=== PATIENT | female | born 2000 | race Caucasian/White ===

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

== ENCOUNTER 2018-01-09 16:03 | Emergency (ER) | payer BC, OTHER ==
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
[2018-01-09 18:06] VITALS: BP 113/62
--- NOTE | 2018-01-10 10:39 | CR ---
EXAM DATE: 01/09/18 PATIENT'S AGE: 17 Patient: BERNARDINO HAYNES Facility: [place], [place] Site . Site : 2000 Study: XRay Chest [id number]/14/2018 5:38:29 PM Ordering Physician: Doctor Anderson Final Report: INDICATION: chest pain, sob, hx of asthma, smoker TECHNIQUE: PA and lateral chest films are submitted. COMPARISON: None. FINDINGS: Heart size and pulmonary vasculature within normal limits. Lung lombardi are clear. IMPRESSION: No active disease. Dictated by Matt Nelson MD @ 01/09/2018 6:20:13 PM Dictated by: Matt Nelson MD @ 01/09/2018 18:20:20 (Electronic Signature) Report Signed by Proxy. DAVID
== END 2018-01-09 17:58 | disposition home or self-care (01) ==
LOC: MW.ED 16:03
DX: M62.838 Other muscle spasm (principal); Z91.02 Food additives allergy status; Z91.048 Other nonmedicinal substance allergy status; F17.210 Nicotine dependence, cigarettes, uncomplicated
CPT/HCPCS: 71046; 71046-26; 81025; 99283

== ENCOUNTER 2018-01-11 00:05 | Emergency (ER) | payer BC, OTHER ==
[2018-01-11 00:18] VITALS: BP 127/76
[2018-01-11] MEDS ORDERED: Diphtheria/Tetanus Toxoids,Adult (Td) 0.5 ML Syringe IM ONE (00:22)
[2018-01-11] MEDS ORDERED: Ketorolac 60 MG/2 ML SDV IM ONE (00:22)
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
[2018-01-11] MEDS ORDERED: Diphtheria,Pertussis(Acell),Tetanus Vaccine 0.5 ML Syringe IM ONE (00:43)
--- NOTE | 2018-01-11 11:03 | CR ---
EXAM DATE: 01/11/18 PATIENT'S AGE: 17 Patient: BERNARDINO HAYNES Facility: [place], [place] Site . Site : 2000 Study: XRay Extremity Left Finger [id number]/16/2018 12:36:42 AM Ordering Physician: Nawaf Franks Final Report: INDICATION: L 5th digit pain after crushing injury today TECHNIQUE: Three views of the left thumb COMPARISON: None FINDINGS: Bones: No fractures or bone lesions. Joint spaces: Unremarkable. Soft tissues: Unremarkable. IMPRESSION: No acute bony abnormality Dictated by Thad Coleman MD @ 01/11/2018 12:45:01 AM Dictated by: Thad Coleman MD @ 01/11/2018 00:45:18 (Electronic Signature) Report Signed by Proxy. [facility]ja
== END 2018-01-11 01:05 | disposition home or self-care (01) ==
LOC: MW.ED 00:05
DX: S60.012A Contusion of left thumb without damage to nail, initial encounter (principal); F17.210 Nicotine dependence, cigarettes, uncomplicated; Z91.018 Allergy to other foods; Z23 Encounter for immunization; W20.8XXA Other cause of strike by thrown, projected or falling object, initial encounter
CPT/HCPCS: 73140; 90471; 90715; 96372; 99283; J1885

== ENCOUNTER 2018-11-26 16:33 | Emergency (ER) | payer BC, OTHER ==
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
[2018-11-26 17:23] VITALS: BP 109/66
--- NOTE | 2018-11-26 17:43 | CR ---
INDICATION: Chest pain and shortness of breath TECHNIQUE: Chest 2 views COMPARISON: January 09, 2018 FINDINGS: Cardiovascular and mediastinum: Heart size and vasculature are normal in caliber and appearance. Lungs and pleural spaces: Lungs are clear. No sign of infiltrate or mass. No sign of pleural effusion. No pneumothorax. Bones and soft tissues: No significant findings. IMPRESSION: Unremarkable chest. No change from the prior exam. Dictated by Sid Faustin MD @ Nov 26 2018 5:41PM Signed by Dr. Sid Faustin @ Nov 26 2018 5:42PM
== END 2018-11-26 17:20 | disposition home or self-care (01) ==
LOC: MW.ED 16:33
DX: R05 Cough (principal); F17.210 Nicotine dependence, cigarettes, uncomplicated; Z91.018 Allergy to other foods; Z79.899 Other long term (current) drug therapy
CPT/HCPCS: 71046; 71046-26; 99285-25

== ENCOUNTER 2019-05-20 20:09 | Emergency (ER) | payer BC, OTHER ==
[2019-05-20] MEDS ORDERED: Ondansetron 4 MG/2 ML SDV IVPUSH ONE (20:32)
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
[2019-05-20] MEDS ORDERED: Sodium Chloride 0.9% 1,000 ML IV SCH (20:45)
[2019-05-20 21:29] LABS: CHLORIDE,CL 104 mmol/L (98-107); SODIUM,NA 138 mmol/L (136-145)
[2019-05-20 22:03] VITALS: BP 109/61
== END 2019-05-20 22:04 | disposition home or self-care (01) ==
LOC: MW.ED 20:09
DX: O21.0 Mild hyperemesis gravidarum (principal); Z98.890 Other specified postprocedural states; Z87.891 Personal history of nicotine dependence; Z91.018 Allergy to other foods; Z3A.01 Less than 8 weeks gestation of pregnancy
CPT/HCPCS: 80053; 85025; 96361; 96374; 99284; J2405; J7040

== ENCOUNTER 2019-07-27 13:50 | Emergency (ER) | payer BC, OTHER ==
[2019-07-27] MEDS ORDERED: Ondansetron 4 MG/2 ML SDV IVPUSH ONE (14:03)
[2019-07-27] MEDS ORDERED: Sodium Chloride 0.9% 1,000 ML IV ONE (14:03)
[2019-07-27 14:09] VITALS: PULSE 81
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
--- NOTE | 2019-07-27 14:32 | CR ---
INDICATION: Pain, short of breath. COMPARISON: November 26, 2018. FINDINGS: The heart mediastinum and pulmonary vessels are stable and within normal limits. The lungs are clear. Osseous structures normal. IMPRESSION: Stable chest. No acute/active disease demonstrated. Dictated by Prosper Chiu MD @ Jul 27 2019 2:30PM Signed by Dr. Prosper Chiu @ Jul 27 2019 2:31PM
[2019-07-27 14:51] LABS: BLOOD UREA NITROGEN,BUN 5 mg/dL (7.0-18.0); CARBON DIOXIDE,CO2 21.1 mmol/L (21.0-32.0); CHLORIDE,CL 105 mmol/L (98-107); GLUCOSE RANDOM 85 mg/dL (74-106); LIPASE 109 U/L (73-393); POTASSIUM,K 3.5 mmol/L (3.5-5.1); SODIUM,NA 140 mmol/L (136-145)
[2019-07-27 15:30] VITALS: BP 112/55
== END 2019-07-27 15:29 | disposition home or self-care (01) ==
LOC: MW.ED 13:50
DX: O23.42 Unspecified infection of urinary tract in pregnancy, second trimester (principal); O99.342 Other mental disorders complicating pregnancy, second trimester; F41.9 Anxiety disorder, unspecified; Z91.018 Allergy to other foods; Z91.048 Other nonmedicinal substance allergy status; Z3A.16 16 weeks gestation of pregnancy
CPT/HCPCS: 36415; 71045; 80053; 81001; 83690; 85025; 87086; J2405; J7040

== ENCOUNTER 2020-01-07 05:50 | Inpatient (IN) | payer BC, OTHER ==
[2020-01-07] MEDS ORDERED: Sodium Chloride 0.9% 2.5 ML Syringe FLUSH PRN (05:58)
[2020-01-07] MEDS ORDERED: Water For Irrigation,Sterile 1,000 ML Container IRR PRN (05:58)
[2020-01-07] MEDS ORDERED: Ondansetron 4 MG/2 ML SDV IVPUSH PRN (05:58)
[2020-01-07] MEDS ORDERED: Sodium Chloride 0.9% 10 ML Syringe FLUSH PRN (05:58)
[2020-01-07] MEDS ORDERED: Terbutaline 1 MG/ML SDV SUBCUT PRN (05:58)
[2020-01-07] MEDS ORDERED: Misoprostol 200 MCG Tab PO PRN (05:58)
[2020-01-07] MEDS ORDERED: Sodium Chloride 0.9% 10 ML SDV IV PRN (05:58)
[2020-01-07] MEDS ORDERED: Butorphanol 1 MG/ML SDV IVPUSH PRN (05:58)
[2020-01-07] MEDS ORDERED: Methylergonovine 0.2 MG/1 ML Amp IM PRN (05:58)
[2020-01-07] MEDS ORDERED: Lidocaine 1% 50 ML MDV INJECT PRN (05:58)
[2020-01-07] MEDS ORDERED: Nalbuphine 10 MG/1 ML Vial IVPUSH PRN (05:58)
[2020-01-07] MEDS ORDERED: Ampicillin 2 GM in Sodium Chloride 0.9% 100 ML IV ONE (05:58)
[2020-01-07] MEDS ORDERED: Tranexamic Acid 1,000 MG in Sodium Chloride 0.9% 100 ML IV PRN (05:58)
[2020-01-07] MEDS ORDERED: Carboprost Tromethamine 250 MCG/1 ML Amp IM PRN (05:58)
[2020-01-07] MEDS ORDERED: Oxytocin/0.9 % Sodium Chloride 30 UNIT/500 ML BAG IV SCH ×2 (06:00)
[2020-01-07] MEDS: Lactated Ringers 1,000 ML IV SCH ×2 (06:38→08:15)
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
[2020-01-07] MEDS ORDERED: Bupivicaine/fentaNYL/NS 250 ML ONE (07:39)
[2020-01-07] MEDS ORDERED: Bupivacaine 0.5% 10 ML SDV ONE (08:19)
[2020-01-07] MEDS ORDERED: Bisacodyl 10 MG Supp RECTAL PRN (10:42)
[2020-01-07] MEDS ORDERED: Witch Hazel Medicated Pads 40/Jar TOP PRN (10:42)
[2020-01-07] MEDS ORDERED: Ibuprofen 800 MG Tab PO PRN (10:42)
[2020-01-07] MEDS ORDERED: Benzocaine/Menthol 20%-0.5% Spray 78 GM Cannister TOP PRN (10:42)
[2020-01-07] MEDS ORDERED: Ibuprofen 400 MG Tab PO PRN (10:42)
[2020-01-07] MEDS ORDERED: Docusate Sodium 100 MG Cap PO PRN (10:42)
[2020-01-07] MEDS ORDERED: Lanolin 100% Cream 7 GM Tube TOP PRN (10:42)
[2020-01-07] MEDS ORDERED: Acetaminophen 500 MG Tab PO PRN ×2 (10:42)
--- NOTE | 2020-01-07 23:29 | OR ---
SURGEON: Sendy Trores M.D. DATE OF PROCEDURE: 01/07/2020 PREOPERATIVE DIAGNOSES: A 39-week intrauterine , active spontaneous labor, suspected growth restriction, group B strep positive. POSTOPERATIVE DIAGNOSES: A 39-week intrauterine , active spontaneous labor, suspected growth restriction, group B strep positive. PROCEDURE: Group B strep prophylaxis term spontaneous vaginal delivery. PRIMARY SURGEON: Sendy Torres M.D. ANESTHESIA: Epidural. ESTIMATED BLOOD LOSS: Less than 100 mL. FINDINGS: Live born female. scores 8 and 9. Weight of 6 pounds 1 ounce. Placenta spontaneous. Schultze intact with 3 vessels. Perineum intact. COMPLICATIONS: None known. DISPOSITION: Mother and baby are in LDR in good condition. BRIEF HISTORY: This is a 19-year-old female, G3, P1-0-1-1. She presents at 39-0/7 weeks' gestation. She presented to Labor and Delivery with planned induction of labor due to minimal growth over the last 3 weeks. However, upon admission to Labor and Delivery, she began to have several uncomfortable contractions. Then, had spontaneous rupture of membranes with clear fluid noted. She had received ampicillin for group B strep prophylaxis and she progressed into spontaneous labor. She received an epidural for pain control and she progressed to complete. DESCRIPTION OF PROCEDURE: With the patient in dorsal lithotomy position, the patient pushed over a 5- minute time period to a 5+ station, at which time the head was delivered spontaneously and atraumatically over the perineum with support with subsequent delivery of the infant's shoulders and body without any difficulty. The infant was bulb suctioned by nose and mouth and the cord was clamped x2 and cut. The infant was handed to the mother in the presence of the nurse attending delivery. The was a live born female, scores 8 and 9, weighing 6 pounds 1 ounce. Cord blood was collected for cord ABGs. Pitocin was initiated after delivery of the to assist with delivery of the placenta, which was delivered spontaneously. Schultze intact with 3 vessels. Upon inspection of the pelvis and perineum, there were no periurethral, vaginal sidewall, cervical, rectal, or perineal lacerations. EBL was less than 200 mL. Final sponge, needle, and instrument counts were correct. There were no known complications. Mother and baby remained in LDR in good condition. JOSÉ / AMANDO /[id number]
--- NOTE | 2020-01-08 09:27 | PCM.PNPP ---
- General Info Date of Service: 01/08/20 Functional Status: Reports: Pain Controlled, Tolerating Diet, Ambulating, Urinating, Other (baby will need to stay until tomorrow for observations due to GBS status) - Review of Systems General: Reports: No Symptoms HEENT: Reports: No Symptoms Pulmonary: Reports: No Symptoms Cardiovascular: Reports: No Symptoms Gastrointestinal: Reports: No Symptoms Genitourinary: Reports: No Symptoms Musculoskeletal: Reports: No Symptoms Skin: Reports: No Symptoms Neurological: Reports: No Symptoms Psychiatric: Reports: No Symptoms - Patient Data Vital Signs - Most Recent: Last Vital Signs Temp 36.3 C 01/08/20 07:00 Pulse 65 01/08/20 07:00 Resp 18 01/08/20 07:00 BP 102/58 L 01/08/20 07:00 Pulse Ox 98 01/08/20 07:00 Weight - Most Recent: 72.575 kg Lab Results - Last 24 Hours: Laboratory Results - last 24 hr 01/07/20 01/07/20 01/08/20 Range/Units 10:23 10:23 06:04 Hgb 12.3 (12.0-16.0) g/dL Hct 38.0 (36.0-46.0) % Cord ABG pH 7.409 H (7.18-7.38) Cord ABG Base Excess -3 (-10--2) Cord VBG pH 7.450 (7.25-7.45) Cord VBG Base Excess -2 (-10--2) Med Orders - Current: Current Medications Acetaminophen (Tylenol Extra Strength) 500 mg PO Q4H PRN PRN Reason: Pain Acetaminophen (Tylenol Extra Strength) 1,000 mg PO Q4H PRN PRN Reason: Pain Benzocaine/Menthol (Dermoplast Pain Relief 20%-0.5% [place]) 78 gm TOP ASDIRECTED PRN PRN Reason: Perineal Comfort Measure Bisacodyl (Dulcolax) 10 mg RECTAL ONETIME PRN PRN Reason: Constipation Carboprost Tromethamine (Hemabate Ds) 250 mcg IM ASDIRECTED PRN PRN Reason: Post Hemorrhage Docusate Sodium (Colace) 100 mg PO BID PRN PRN Reason: Constipation Emollient Ointment (Lansinoh Hpa) 0 gm TOP ASDIRECTED PRN PRN Reason: Sore Nipples Tranexamic Acid 1,000 mg/ (Sodium Chloride) 110 mls @ 660 mls/hr IV ONETIME PRN PRN Reason: Bleeding Ibuprofen (Motrin) 400 mg PO Q4H PRN PRN Reason: Pain Ibuprofen (Motrin) 800 mg PO Q6H PRN PRN Reason: Pain Methylergonovine Maleate (Methergine) 0.2 mg IM ASDIRECTED PRN PRN Reason: Post Hemorrhage Misoprostol (Cytotec) 200 mcg PO ONETIME PRN PRN Reason: Post Hemorrhage Ondansetron HCl (Zofran) 4 mg IVPUSH Q6H PRN PRN Reason: Nausea/Vomiting Witch Domo (Tucks) 1 pad TOP ASDIRECTED PRN PRN Reason: comfort care Discontinued Medications Bupivacaine HCl (Sensorcaine-Mpf 0.5%) Confirm Administered Dose 10 ml .ROUTE .[employer] ONE Stop: 01/07/20 08:20 Last Admin: 01/07/20 16:32 Dose: Not Given Butorphanol Tartrate (Stadol) 1 mg IVPUSH Q1H PRN PRN Reason: Pain Ampicillin Sodium 2 gm/ Sodium (Chloride) 100 mls @ 200 mls/hr IV ONETIME ONE Stop: 01/07/20 06:27 Last Admin: 01/07/20 06:39 Dose: 200 mls/hr Lactated Ringer's (Ringers, Lactated) 1,000 mls @ 150 mls/hr IV ASDIRECTED [facility] Last Admin: 01/07/20 08:15 Dose: 150 mls/hr Oxytocin/Sodium Chloride (Oxytocin 30 Unit/500 Ml-Ns) 30 unit in 500 mls @ 500 mls/hr IV TITRATE [facility] Last Admin: 01/07/20 10:25 Dose: 500 mls/hr Oxytocin/Sodium Chloride (Oxytocin 30 Unit/500 Ml-Ns) 30 unit in 500 mls @ 2 mls/hr IV TITRATE [facility]; Protocol Fentanyl/Bupivacaine HCl (Fentanyl/Bupivacaine/Ns 2 Mcg-0.125% 250 Ml) Confirm Administered Dose 250 mls @ as directed .ROUTE .[employer] ONE Stop: 01/07/20 07:40 Last Admin: 01/07/20 16:32 Dose: Not Given Lidocaine HCl (Xylocaine 1%) 50 ml INJECT ONETIME PRN PRN Reason: Laceration repair Nalbuphine HCl (Nubain) 10 mg IVPUSH Q1H PRN PRN Reason: Pain (severe 7-10) Sodium Chloride (Saline Flush) 10 ml FLUSH ASDIRECTED PRN PRN Reason: Keep Vein Open Sodium Chloride (Saline Flush) 2.5 ml FLUSH ASDIRECTED PRN PRN Reason: Keep Vein Open Sodium Chloride (Normal Saline) 10 ml IV ASDIRECTED PRN PRN Reason: IV Use Sterile Water (Sterile Water For Irrigation) 1,000 ml IRR ASDIRECTED PRN PRN Reason: delivery Last Admin: 01/07/20 14:36 Dose: 1,000 ml Terbutaline Sulfate (Brethine) 0.25 mg SUBCUT ASDIRECTED PRN PRN Reason: Tacysystole - Infant Interaction Infant Disposition, : in Room with Family Interaction: Holding Infant Feeding: Breastfed Infant; Nursed Well Support Person: Significant Other - Recovery Exam Fundal Tone: Firm Fundal Level: 1 Fingerbreadths Below Umbilicus Fundal Placement: Midline Lochia Amount: Scant Lochia Color: Rubra/Red Perineum Description: Intact, Minimal Bruising/Swelling Episiotomy/Laceration: Approximated Bladder Status: Voiding - Exam General: Alert, Oriented Neck: Supple Lungs: Normal Respiratory Effort GI/Abdominal Exam: Soft, Non-Tender, No Distention Extremities: Normal Inspection, Normal Range of Motion, No Pedal Edema Skin: Warm, Dry, Intact Neurological: No New Focal Deficit Psy/Mental Status: Alert, Normal Affect, Normal Mood - Problem List Review Problem List Initiated/Reviewed/Updated: Yes - My Orders Last 24 Hours: My Active Orders 01/07/20 10:23 Patient Status [ADT] Routine 01/07/20 10:42 May Shower [RC] ASDIRECTED Up ad [place] [RC] ASDIRECTED Vital Signs [RC] PER UNIT ROUTINE Acetaminophen [Tylenol Extra Strength] 1,000 mg PO Q4H PRN Acetaminophen [Tylenol Extra Strength] 500 mg PO Q4H PRN Benzocaine/Menthol [Dermoplast Pain Relief 20%-0.5% [place]] 78 gm TOP ASDIRECTED PRN Docusate Sodium [Colace] 100 mg PO BID PRN Ibuprofen [Motrin] 400 mg PO Q4H PRN Ibuprofen [Motrin] 800 mg PO Q6H PRN Lanolin [Lansinoh HPA] See Dose Instructions TOP ASDIRECTED PRN bisacodyL [Dulcolax] 10 mg RECTAL ONETIME PRN witch Domo [Tucks] 1 pad TOP ASDIRECTED PRN Assess Lochia [WOMSER] Per Unit Routine Assess Uterine Involution [WOMSER] Per Unit Routine Peripheral IV Discontinue [OM.PC] Routine 01/07/20 Lunch Regular Diet [DIET] - Assessment Assessment:: PPD#1 after stable, minimal lochia, tolerating diet, ambulating and doing well with . - Plan Plan:: Continue care.
--- NOTE | 2020-01-09 08:26 | PCM.PNPP ---
- General Info Date of Service: 01/09/20 Functional Status: Reports: Pain Controlled, Tolerating Diet, Ambulating, Urinating, Other ( well) - Review of Systems General: Reports: No Symptoms HEENT: Reports: No Symptoms Pulmonary: Reports: No Symptoms Cardiovascular: Reports: No Symptoms Gastrointestinal: Reports: No Symptoms Genitourinary: Reports: No Symptoms Musculoskeletal: Reports: No Symptoms Skin: Reports: No Symptoms Neurological: Reports: No Symptoms Psychiatric: Reports: No Symptoms - Patient Data Vital Signs - Most Recent: Last Vital Signs Temp 36.6 C 01/09/20 06:00 Pulse 79 01/09/20 06:00 Resp 16 01/09/20 06:00 BP 119/88 01/09/20 06:00 Pulse Ox 97 01/09/20 06:00 Weight - Most Recent: 72.575 kg Med Orders - Current: Current Medications Acetaminophen (Tylenol Extra Strength) 500 mg PO Q4H PRN PRN Reason: Pain Acetaminophen (Tylenol Extra Strength) 1,000 mg PO Q4H PRN PRN Reason: Pain Benzocaine/Menthol (Dermoplast Pain Relief 20%-0.5% [place]) 78 gm TOP ASDIRECTED PRN PRN Reason: Perineal Comfort Measure Bisacodyl (Dulcolax) 10 mg RECTAL ONETIME PRN PRN Reason: Constipation Carboprost Tromethamine (Hemabate Ds) 250 mcg IM ASDIRECTED PRN PRN Reason: Post Hemorrhage Docusate Sodium (Colace) 100 mg PO BID PRN PRN Reason: Constipation Emollient Ointment (Lansinoh Hpa) 0 gm TOP ASDIRECTED PRN PRN Reason: Sore Nipples Tranexamic Acid 1,000 mg/ (Sodium Chloride) 110 mls @ 660 mls/hr IV ONETIME PRN PRN Reason: Bleeding Ibuprofen (Motrin) 400 mg PO Q4H PRN PRN Reason: Pain Ibuprofen (Motrin) 800 mg PO Q6H PRN PRN Reason: Pain Methylergonovine Maleate (Methergine) 0.2 mg IM ASDIRECTED PRN PRN Reason: Post Hemorrhage Misoprostol (Cytotec) 200 mcg PO ONETIME PRN PRN Reason: Post Hemorrhage Ondansetron HCl (Zofran) 4 mg IVPUSH Q6H PRN PRN Reason: Nausea/Vomiting Enmanuel Ospina (Tucks) 1 pad TOP ASDIRECTED PRN PRN Reason: comfort care Discontinued Medications Bupivacaine HCl (Sensorcaine-Mpf 0.5%) Confirm Administered Dose 10 ml .ROUTE .[employer] ONE Stop: 01/07/20 08:20 Last Admin: 01/07/20 16:32 Dose: Not Given Butorphanol Tartrate (Stadol) 1 mg IVPUSH Q1H PRN PRN Reason: Pain Ampicillin Sodium 2 gm/ Sodium (Chloride) 100 mls @ 200 mls/hr IV ONETIME ONE Stop: 01/07/20 06:27 Last Admin: 01/07/20 06:39 Dose: 200 mls/hr Lactated Ringer's (Ringers, Lactated) 1,000 mls @ 150 mls/hr IV ASDIRECTED TEREZA Last Admin: 01/07/20 08:15 Dose: 150 mls/hr Oxytocin/Sodium Chloride (Oxytocin 30 Unit/500 Ml-Ns) 30 unit in 500 mls @ 500 mls/hr IV TITRATE TEREZA Last Admin: 01/07/20 10:25 Dose: 500 mls/hr Oxytocin/Sodium Chloride (Oxytocin 30 Unit/500 Ml-Ns) 30 unit in 500 mls @ 2 mls/hr IV TITRATE TEREZA; Protocol Fentanyl/Bupivacaine HCl (Fentanyl/Bupivacaine/Ns 2 Mcg-0.125% 250 Ml) Confirm Administered Dose 250 mls @ as directed .ROUTE .[employer] ONE Stop: 01/07/20 07:40 Last Admin: 01/07/20 16:32 Dose: Not Given Lidocaine HCl (Xylocaine 1%) 50 ml INJECT ONETIME PRN PRN Reason: Laceration repair Nalbuphine HCl (Nubain) 10 mg IVPUSH Q1H PRN PRN Reason: Pain (severe 7-10) Sodium Chloride (Saline Flush) 10 ml FLUSH ASDIRECTED PRN PRN Reason: Keep Vein Open Sodium Chloride (Saline Flush) 2.5 ml FLUSH ASDIRECTED PRN PRN Reason: Keep Vein Open Sodium Chloride (Normal Saline) 10 ml IV ASDIRECTED PRN PRN Reason: IV Use Sterile Water (Sterile Water For Irrigation) 1,000 ml IRR ASDIRECTED PRN PRN Reason: delivery Last Admin: 01/07/20 14:36 Dose: 1,000 ml Terbutaline Sulfate (Brethine) 0.25 mg SUBCUT ASDIRECTED PRN PRN Reason: Tacysystole - Interaction Disposition, : [place] in Room with Family Infant Interaction: Holding Infant Infant Feeding: Breastfed Infant; Nursed Well Support Person: Significant Other - Recovery Exam Fundal Tone: Firm Fundal Level: 3 Fingerbreadths Below Umbilicus Fundal Placement: Midline Lochia Amount: Small Lochia Color: Rubra/Red Perineum Description: Intact, Minimal Bruising/Swelling Episiotomy/Laceration: None Bladder Status: Voiding - Exam General: Alert, Oriented Lungs: Normal Respiratory Effort Extremities: Normal Inspection, Non-Tender, No Pedal Edema Skin: Warm, Dry, Intact Neurological: No New Focal Deficit Psy/Mental Status: Alert, Normal Affect, Normal Mood - Problem List Review Problem List Initiated/Reviewed/Updated: Yes - Assessment Assessment:: PPD#2 after stable, minimal lochia,would like to go home today - Plan Plan:: discharge instructions reviewed.
[2020-01-09 11:11] VITALS: BP 124/66; PULSE 75
[2020-01-09] MEDS ORDERED: Measles, Mumps & Rubella Vaccine 0.5 ML SDV SUBCUT ONE (11:24)
[2020-01-10] MEDS ORDERED: Measles, Mumps & Rubella Vaccine 0.5 ML SDV SUBCUT ONE (11:10)
== END 2020-01-09 12:15 | disposition home or self-care (01) | DRG 560 ==
LOC: MW.OBCHECK 05:50 → MW.OB 05:51 → MW.OBCHECK 05:58 → OBSVTOIN 10:23 → MW.OB 17:01
PROVIDERS: ADMIT Obstetrics & Gynecology; ATTEND Obstetrics & Gynecology
PROC: 10E0XZZ Delivery of Products of Conception, External Approach (ICD-10-PCS; principal; 2020-01-07)
PROC: 3E0R3BZ Introduction of Anesthetic Agent into Spinal Canal, Percutaneous Approach (ICD-10-PCS; 2020-01-07)
DX: O36.5930 Maternal care for other known or suspected poor fetal growth, third trimester, not applicable or unspecified (principal); O99.824 Streptococcus B carrier state complicating childbirth; O77.0 Labor and delivery complicated by meconium in amniotic fluid; O76 Abnormality in fetal heart rate and rhythm complicating labor and delivery; Z3A.39 39 weeks gestation of pregnancy; Z37.0 Single live birth
CPT/HCPCS: 36415; 51702; 59025; 59409; 82803; 85014; 85018; 85027; 86592; 86593; 86850; 86900; 86901; 88307; 90707; G0010; J0290; J2590; J7050; J7120

== ENCOUNTER 2021-06-12 13:13 | Emergency (ER) | payer BC, OTHER ==
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
[2021-06-12] MEDS ORDERED: Sodium Chloride 0.9% 1,000 ML IV ONE (13:45)
[2021-06-12 14:38] LABS: BLOOD UREA NITROGEN,BUN 12 mg/dL (7.0-18.0); CARBON DIOXIDE,CO2 24.2 mmol/L (21.0-32.0); CHLORIDE,CL 102 mmol/L (98-107); GLUCOSE RANDOM 87 mg/dL (74-106); POTASSIUM,K 4.3 mmol/L (3.5-5.1); SODIUM,NA 136 mmol/L (136-145)
[2021-06-12 15:10] VITALS: BP 100/58; PULSE 82
== END 2021-06-12 15:09 | disposition home or self-care (01) ==
LOC: MW.ED 13:13
DX: O26.891 Other specified pregnancy related conditions, first trimester (principal); R10.2 Pelvic and perineal pain; Z91.018 Allergy to other foods; Z91.048 Other nonmedicinal substance allergy status; Z3A.11 11 weeks gestation of pregnancy
CPT/HCPCS: 36415; 80053; 81003; 84702; 85025; 87480; 87510; 87660; 99284; J7030

== ENCOUNTER 2021-12-10 02:37 | Inpatient (IN) | payer BC, OTHER ==
[2021-12-10] MEDS ORDERED: Misoprostol 25 MCG (1/4 of 100 MCG) Tab VAG PRN ×2 (02:47)
[2021-12-10] MEDS ORDERED: Terbutaline 1 MG/ML SDV SUBCUT PRN (02:47)
[2021-12-10] MEDS ORDERED: Carboprost Tromethamine 250 MCG/1 ML Amp IM PRN (02:47)
[2021-12-10] MEDS ORDERED: Misoprostol 200 MCG Tab PO PRN (02:47)
[2021-12-10] MEDS ORDERED: Butorphanol 1 MG/ML SDV IVPUSH PRN (02:47)
[2021-12-10] MEDS ORDERED: Tranexamic Acid 1,000 MG in Sodium Chloride 0.9% 100 ML IV PRN (02:47)
[2021-12-10] MEDS ORDERED: Sodium Chloride 0.9% 20 ML SDV IV PRN (02:47)
[2021-12-10] MEDS ORDERED: Sodium Chloride 0.9% 10 ML Syringe FLUSH PRN (02:47)
[2021-12-10] MEDS ORDERED: Lidocaine 1% 50 ML MDV INJECT PRN (02:47)
[2021-12-10] MEDS ORDERED: Sodium Chloride 0.9% 2.5 ML Syringe FLUSH PRN (02:47)
[2021-12-10] MEDS ORDERED: Methylergonovine 0.2 MG/1 ML Amp IM PRN (02:47)
[2021-12-10] MEDS ORDERED: Water For Irrigation,Sterile 1,000 ML Container IRR PRN (02:47)
[2021-12-10] MEDS ORDERED: Nalbuphine 10 MG/1 ML Vial IVPUSH PRN (02:47)
[2021-12-10] MEDS ORDERED: Ondansetron 4 MG/2 ML SDV IVPUSH PRN (02:47)
[2021-12-10] MEDS ORDERED: Misoprostol 25 MCG (1/4 of 100 MCG) Tab PO ONE (02:58)
[2021-12-10] MEDS ORDERED: Misoprostol 25 MCG (1/4 of 100 MCG) Tab PO PRN (02:59)
[2021-12-10] MEDS ORDERED: Oxytocin/0.9 % Sodium Chloride 30 UNIT/500 ML BAG IV SCH ×2 (03:00)
[2021-12-10] MEDS: Lactated Ringers 1,000 ML IV SCH ×2 (07:35→08:21)
[2021-12-10] MEDS ORDERED: Ropivacaine HCl/PF 100 ML ONE (08:21)
[2021-12-10] MEDS ORDERED: ePHEDrine 50 MG/ML SDV IVPUSH PRN ×2 (08:39)
[2021-12-10] MEDS ORDERED: Ropivacaine HCl/PF 200 MG in Premix Bag 1 BAG EPIDUR SCH (08:45)
[2021-12-10] MEDS ORDERED: Lanolin 100% Cream 7 GM Tube TOP PRN (13:35)
[2021-12-10] MEDS ORDERED: Acetaminophen 500 MG Tab PO PRN ×2 (13:35)
[2021-12-10] MEDS ORDERED: Docusate Sodium 100 MG Cap PO PRN (13:35)
[2021-12-10] MEDS ORDERED: Benzocaine/Menthol 20%-0.5% Spray 78 GM Cannister TOP PRN (13:35)
[2021-12-10] MEDS ORDERED: Ibuprofen 800 MG Tab PO PRN (13:35)
[2021-12-10] MEDS ORDERED: Ibuprofen 400 MG Tab PO PRN (13:35)
[2021-12-10] MEDS ORDERED: Witch Hazel Medicated Pads 40/Jar TOP PRN (13:35)
[2021-12-10] MEDS ORDERED: Bisacodyl 10 MG Supp RECTAL PRN (13:35)
[2021-12-11 10:21] VITALS: BP 120/76; PULSE 74
== END 2021-12-11 15:50 | disposition home or self-care (01) | DRG 560 ==
LOC: MW.OBCHECK 02:37 → MW.OB 02:39 → MW.OBCHECK 02:47 → OBSVTOIN 13:35
PROVIDERS: ADMIT Obstetrics & Gynecology Obstetrics; ATTEND Obstetrics & Gynecology Obstetrics
PROC: 10E0XZZ Delivery of Products of Conception, External Approach (ICD-10-PCS; principal; 2021-12-10)
PROC: 3E0P7VZ Introduction of Hormone into Female Reproductive, Via Natural or Artificial Opening (ICD-10-PCS; 2021-12-10)
PROC: 3E0R3BZ Introduction of Anesthetic Agent into Spinal Canal, Percutaneous Approach (ICD-10-PCS; 2021-12-10)
PROC: 00HU33Z Insertion of Infusion Device into Spinal Canal, Percutaneous Approach (ICD-10-PCS; 2021-12-10)
DX: O35.9XX0 Maternal care for (suspected) fetal abnormality and damage, unspecified, not applicable or unspecified (principal); O98.52 Other viral diseases complicating childbirth; U07.1 COVID-19; O69.81X0 Labor and delivery complicated by cord around neck, without compression, not applicable or unspecified; O99.62 Diseases of the digestive system complicating childbirth; K21.9 Gastro-esophageal reflux disease without esophagitis; O99.344 Other mental disorders complicating childbirth; F41.9 Anxiety disorder, unspecified; F32.A Depression, unspecified; F43.10 Post-traumatic stress disorder, unspecified; Z37.0 Single live birth; Z3A.37 37 weeks gestation of pregnancy
CPT/HCPCS: 36415; 51702; 59025; 59409; 85014; 85018; 85027; 86592; 86850; 86900; 86901; A9270-GY; J0595; J2590; J2795; J7120; U0002